=== PATIENT | male | born 1970 | race African-American/Black ===

== ENCOUNTER 2022-06-11 16:17 | Inpatient (IN) | payer OTHER ==
[~2022-06-11] VITALS: Ht 188 cm; Wt 87.1 kg
[2022-06-11 17:58] LABS: BG BASE EXCESS 3.8 mmol/L (-2.0-2.0); BG CARBOXYHEMOGLOBIN 0.1 % (0.5-1.5); BG DEOXYHEMOGLOBIN 2.3 % (0.0-5.0); BG FRACTION INSPIRED OXYGEN 21; BG HCO3 ACT 27.7 mmol/L (22.0-26.0); BG METHEMOGLOBIN 0.3 % (0.0-1.5); BG OXYGEN SATURATION 97.7 % (92.0-98.5); BG OXYHEMOGLOBIN 97.3 % (94.0-97.0); BG PCO2 39.1 mmHg (35.0-45.0); BG PH 7.468 (7.350-7.450); BG PO2 98.9 mmHg (75.0-100.0); BG SAMPLE SITE RIGHT BRACHIAL; BG VENT MODE ROOM AIR
[2022-06-11 19:17] LABS: BASOPHILS % 0.5 % (0.0-2.0); EOSINOPHILS % 1.5 % (0.0-5.0); HEMOGLOBIN. 12.9 g/dL (14.0-18.0); LYMPHOCYTES % 43.7 % (20.0-50.0); MEAN CORPUSCULAR HEMOGLOBIN 34.1 pg (28.0-32.0); MEAN CORPUSCULAR VOLUME 102.7 fL (80.0-94.0); NEUTROPHILS % 47.3 % (40.0-76.0); PLATELET 352 x1000/uL (130-400); RED CELL DISTRIBUTION WIDTH 15.1 % (11.6-14.6)
[2022-06-11 19:27] LABS: CHLORIDE 103 mEq/L (98-107)
[2022-06-11 19:41] LABS: CREATINE KINASE 107 IU/L (39-308); ETHANOL BLOOD < 10 mg/dL
[2022-06-11] MEDS ORDERED: SODIUM CHLORIDE 0.9% 1,000 ML IV ONE (20:15)
[2022-06-12 02:08] VITALS: BP 124/76
[2022-06-12 04:00] VITALS: BP 137/77
[2022-06-12] MEDS ORDERED: METF-416 PO (04:18)
[2022-06-12] MEDS ORDERED: DULA0.75 SUBCUT (04:18)
[2022-06-12] MEDS ORDERED: HYDR-4134 PO (04:18)
[2022-06-12] MEDS ORDERED: ALLO300T2 PO (04:18)
[2022-06-12] MEDS ORDERED: INS7030 SUBCUT (04:18)
[2022-06-12] MEDS ORDERED: ASPI-1406 PO (04:18)
[2022-06-12] MEDS ORDERED: METO25TA6 PO (04:18)
[2022-06-12] MEDS ORDERED: ATOR-2 PO (04:18)
[2022-06-12] MEDS ORDERED: AMLO10TA80 PO (04:18)
[2022-06-12 08:00] VITALS: BP 128/74
[2022-06-12] MEDS: AMLODIPINE 10MG TABLET PO SCH (10:25)
[2022-06-12] MEDS: ASPIRIN 81MG TABLET PO SCH (10:25)
[2022-06-12 12:00] VITALS: BP 140/91
[2022-06-12 16:00] VITALS: BP 141/91
[2022-06-12] MEDS ORDERED: ACETAMINOPHEN 325MG TABLET PO PRN (17:45)
[2022-06-12] MEDS ORDERED: ONDANSETRON HCL 4MG/2ML INJ IV PRN (17:45)
[2022-06-12 20:40] VITALS: BP 125/78
[2022-06-12] MEDS ORDERED: ATORVASTATIN CALCIUM 40MG TABLET PO SCH (21:00)
[2022-06-13] VITALS: BP 123/72
[2022-06-13 04:00] VITALS: BP 136/87
[2022-06-13 08:00] VITALS: BP 130/79
[2022-06-13] MEDS ORDERED: FOLIC ACID 1MG TABLET PO SCH (09:00)
[2022-06-13] MEDS ORDERED: ENOXAPARIN 40MG/0.4ML SYR SUBCUT SCH (09:00)
[2022-06-13] MEDS ORDERED: DIPHENHYDRAMINE 50MG/ML VIAL IV SCH (09:00)
[2022-06-13] MEDS ORDERED: LORAZEPAM 1MG TABLET PO SCH (09:00)
[2022-06-13] MEDS: ASPIRIN 81MG TABLET PO SCH (09:48)
[2022-06-13] MEDS: AMLODIPINE 10MG TABLET PO SCH (09:48)
[2022-06-13 12:00] VITALS: BP 116/97
[2022-06-13 15:58] VITALS: BP 116/97
[2022-06-17] MEDS ORDERED: THIAMINE HCL 200 MG in SODIUM CHLORIDE 0.9% 98 ML IV SCH (09:00)
== END 2022-06-13 16:30 | disposition home health service (06) | DRG 421 ==
LOC: ER 16:17 → EDBEDREQTM 22:10 → EDBEDREQ 22:10 → ENRESERV 23:11 → 7WST 23:38
PROVIDERS: ADMIT Internal Medicine; ATTEND Internal Medicine
DX: R62.7 Adult failure to thrive (principal); G93.40 Encephalopathy, unspecified; E44.1 Mild protein-calorie malnutrition; I69.351 Hemiplegia and hemiparesis following cerebral infarction affecting right dominant side; E11.9 Type 2 diabetes mellitus without complications; I10 Essential (primary) hypertension; E78.00 Pure hypercholesterolemia, unspecified; I69.320 Aphasia following cerebral infarction; Z68.24 Body mass index [BMI] 24.0-24.9, adult
CPT/HCPCS: 36415; 36600; 70551; 71045; 80053; 80307; 80320; 80329; 82375; 82550; 82805; 82962; 83036; 83605; 83880; 84484; 85025; 93005; 97162; 99285; J1200; J1650; J7030; G0480